=== PATIENT | male | born 1985 ===

== ENCOUNTER 2018-05-19 08:58 | Emergency (ER) | payer SELFPAY ==
[2018-05-19 09:15] VITALS: BP 113/72; PULSE 75; RESP 18; TEMP 98.5; O2SAT 97
[2018-05-19] MEDS ORDERED: Lidocaine 2% MPF (5 ml) Inj ONE (09:34)
[2018-05-19] MEDS ORDERED: Tdap Vaccine 0.5 ml Vial (10-64 yrs) IM ONE ×2 (09:58→10:04)
[2018-05-19] MEDS ORDERED: Bacitracin 500 Units/gm Oint Foilpak UD ONE (10:04)
--- NOTE | 2018-05-19 11:22 | C.PDOC ---
History Of Present Illness 32 year old male presents to the ED for evaluation of a laceration to his right lower extremity, sustained earlier today. Patient states that he walked into a metal plate. No other complaints offered at this time. Bleeding is controlled on arrival. Tetanus is not up to date. Time Seen by Provider: 05/19/18 09:55 Chief Complaint (Nursing): Abnormal Skin Integrity History Per: Patient History/Exam Limitations: no limitations Onset/Duration Of Symptoms: Hrs Current Symptoms Are (Timing): Still Present Past Medical History Reviewed: Historical Data, Nursing Documentation, Vital Signs Vital Signs: Last Vital Signs Temp 98.5 F 05/19/18 09:12 Pulse 75 05/19/18 09:12 Resp 18 05/19/18 09:12 BP 113/72 05/19/18 09:12 Pulse Ox 97 05/19/18 11:35 - Medical History PMH: No Chronic Diseases Surgical History: No Surg Hx Family History: States: No Known Family Hx - Social History Hx Alcohol Use: Yes Hx Substance Use: Yes - Immunization History Hx Tetanus Toxoid Vaccination: No Hx Influenza Vaccination: No Hx Pneumococcal Vaccination: No Review Of Systems Except As Marked, All Systems Reviewed And Found Negative. Skin: Positive for: Lesions (to right lower leg) Neurological: Negative for: Weakness, Numbness, Incoordination Physical Exam - Physical Exam Appears: Well, Non-toxic, No Acute Distress Skin: Normal Color, Warm, No Rash Head: Atraumatic, Normacephalic Eye(s): bilateral: Normal Inspection Neck: Normal ROM, Supple Chest: Symmetrical Extremity: Normal ROM, No Tenderness, Capillary Refill (less than 2 sec), No Swelling, Other (Anterior aspect of right leg with 3 cm C-shaped laceration, no active bleeding, no foreign body) Pulses: Left Dorsalis Pedis: Normal, Right Dorsalis Pedis: Normal Neurological/Psych: Oriented x3, Normal Speech ED Course And Treatment O2 Sat by Pulse Oximetry: 97 (RA) Pulse Ox Interpretation: Normal Laceration - Laceration Repair right lower leg Wound Length (In cm): 3 Description Of Wound: Irregular (C-shaped) Wound Cleansed With: Sterile Saline Anesthesia: Lidocaine 2% Wound Examination: Irrigated With Saline, No FB With Wound Exploration Wound Closure: Suture (x5) Suture Technique And Material Used: Interrupted, Nylon (3:0) Wound Complexity: Simple Medical Decision Making Medical Decision Making: Impression: 32 year old with laceration Plan: --Laceration repaired without difficulty --Bacitracin and sterile wound dressing applied --Tetanus booster given Counseled regarding wound care instructions. Advised patient to follow up with PMD for wound check. Disposition Counseled Patient/Family Regarding: Diagnosis, Need For Followup, Rx Given - Disposition Referrals: [facility], [Non-Staff] - Disposition: HOME/ ROUTINE Disposition Time: 09:50 Condition: IMPROVED Additional Instructions: BO NOLAND, thank you for letting us take care of you today. The emergency medical care you received today was directed at your acute symptoms. If you were prescribed any medication, please fill it and take as directed. It may take several days for your symptoms to resolve. Return to the Emergency Department if your symptoms worsen, do not improve, or if you have any other problems. Please contact your doctor or call one of the physicians/clinics you have been referred to that are listed on the Patient Visit Information form that is included in your discharge packet. Bring any paperwork you were given at discharge with you along with any medications you are taking to your follow up visit. Our treatment cannot replace ongoing medical care by a primary care provider outside of the emergency department. Thank you for allowing the [facility] team to be part of your care today. KEEP STITCHES CLEAN AND DRY AT ALL TIMES. Follow up with your primary doctor in 2 days for a wound check and then in 7 days for suture removal. Prescriptions: Cephalexin [cephalexin] 500 mg PO TID #15 cap Ibuprofen [Motrin] 600 mg PO Q6 PRN #20 tab PRN Reason: Pain, Moderate (4-7) Instructions: Laceration Repair With Stitches (DC) Forms: [employer] (Macanese) - Clinical Impression Clinical Impression: Laceration - Scribe Statement The provider has reviewed the documentation as recorded by the Scribe (Roberta Ching) Provider Attestation: All medical record entries made by the Scribe were at my direction and personally dictated by me. I have reviewed the chart and agree that the record accurately reflects my personal performance of the history, physical exam, medical decision making, and the department course for this patient. I have also personally directed, reviewed, and agree with the discharge instructions and disposition.
== END 2018-05-19 10:09 | disposition home or self-care (01) ==
LOC: C.ER 08:58
DX: S81.811A Laceration without foreign body, right lower leg, initial encounter (principal); W22.8XXA Striking against or struck by other objects, initial encounter; Z23 Encounter for immunization